=== PATIENT | male | born 1970 | race Caucasian/White ===

== ENCOUNTER 2020-10-16 09:37 | Inpatient (IN) ==
[~2020-10-16 09:37] MED LIST: Bacitracin 50,000 UNIT, Polymyxin B Sulfate 500,000 UNIT, Sodium Chloride IRRigation 1,... IR ONE
[2020-10-16] MEDS ORDERED: CeFAZolin Syr 2,000MG/20 ML 2,000 MG/20 ML SYRINGE IVPB ONE (09:52)
[2020-10-16] MEDS ORDERED: Ringers Solution, Lactated 1,000 ML IVC SCH ×2 (10:00→16:58)
[2020-10-16] MEDS ORDERED: *HR* Propofol 200 MG/20 ML VIAL IVP ONE ×2 (10:08)
[2020-10-16] MEDS ORDERED: Ondansetron 4 MG/2 ML VIAL ONE (10:08)
[2020-10-16] MEDS ORDERED: *HR* Midazolam HCl 2 MG/2 ML VIAL ONE (10:08)
[2020-10-16] MEDS ORDERED: *HR* FentaNYL (PF) 100 MCG/2 ML VIAL ONE (10:08)
[2020-10-16] MEDS ORDERED: Lidocaine -MPF 4% 5 ML AMPUL ONE (10:08)
[2020-10-16] MEDS ORDERED: Dexamethasone 4 MG/ML VIAL ONE (10:08)
[2020-10-16] MEDS ORDERED: *HR* Succinylcholine 200 MG/10 ML VIAL IVP ONE (10:08)
[2020-10-16] MEDS ORDERED: Lidocaine -MPF 2% 2 ML VIAL ONE (10:08)
[2020-10-16] MEDS ORDERED: *HR* HYDROmorphone PF 0.5 MG/0.5 ML SYRINGE IVP PRN (10:51)
[2020-10-16] MEDS ORDERED: *HR* OxyCODONE Immed Rel 5 MG TABLET PO PRN (10:51)
[2020-10-16] MEDS ORDERED: Ondansetron 4 MG/2 ML VIAL IVP PRN ×2 (10:51→16:58)
[2020-10-16] MEDS ORDERED: Dexmedetomidine HCl 400 MCG/100 ML MLS IVC ONE (11:37)
[2020-10-16] MEDS ORDERED: *HR* Remifentanil 1 MG VIAL IVP ONE ×3 (11:46→14:45)
[2020-10-16] MEDS ORDERED: Acetaminophen IV 1,000 MG/100 ML INFUS..BTL ONE (12:21)
[2020-10-16] MEDS ORDERED: *HR* Magnesium Sulfate 1 GM/2 ML VIAL ONE ×2 (12:39→14:25)
[2020-10-16] MEDS ORDERED: Acetaminophen IV 1,000 MG/100 ML INFUS..BTL IVPB ONE (12:40)
[2020-10-16] MEDS ORDERED: EPHEDrine 50 MG/ML VIAL ONE (12:51)
[2020-10-16] MEDS ORDERED: *HR* HYDROMORPHONE 2 MG/ML VIAL ONE (14:46)
[2020-10-16] MEDS ORDERED: *HR* HYDROcodone/Acet 5/325 mg TABLET PO PRN (16:58)
[2020-10-16] MEDS ORDERED: Naloxone 0.4 MG/ML INJ IVP PRN (16:58)
[2020-10-16] MEDS ORDERED: Ibuprofen 400 MG TABLET PO PRN (16:58)
[2020-10-16] MEDS: *HR* OxyCODONE Immed Rel 5 MG TABLET PO PRN (20:39)
[2020-10-16] MEDS: ceFAZolin 2,000 MG in 0.9 % Sodium Chloride 100 ML IVPB SCH (20:46)
[2020-10-17] MEDS: *HR* OxyCODONE Immed Rel 5 MG TABLET PO PRN ×5 (01:36→19:22)
[2020-10-17] MEDS: ceFAZolin 2,000 MG in 0.9 % Sodium Chloride 100 ML IVPB SCH (04:48)
[2020-10-18] MEDS: *HR* OxyCODONE Immed Rel 5 MG TABLET PO PRN ×2 (08:38→13:29)
[2020-10-18 10:53] VITALS: BP 129/78
== END 2020-10-18 13:46 | disposition home or self-care (01) | DRG 455 ==
LOC: SAMDAY 09:37 → 3NENU 12:03
PROVIDERS: ADMIT Orthopaedic Surgery Orthopaedic Surgery of the Spine; ATTEND Orthopaedic Surgery Orthopaedic Surgery of the Spine